=== PATIENT | female | born 1995 | race Caucasian/White ===

== ENCOUNTER 2020-04-29 00:07 | Emergency (ER) | payer MEDICAID ==
[~2020-04-29] VITALS: Ht 152.4 cm; Wt 86.2 kg
[2020-04-29 00:43] VITALS: BP 153/95
== END 2020-04-29 02:43 | disposition home or self-care (01) ==
LOC: ER 00:08
DX: S83.91XA Sprain of unspecified site of right knee, initial encounter (principal); X50.1XXA Overexertion from prolonged static or awkward postures, initial encounter; Y93.72 Activity, wrestling; Y92.89 Other specified places as the place of occurrence of the external cause; Y99.8 Other external cause status
CPT/HCPCS: 29505; 73560

== ENCOUNTER 2021-07-31 09:20 | Emergency (ER) | payer MEDICAID ==
[~2021-07-31] VITALS: Ht 152.4 cm; Wt 86.2 kg
[2021-07-31 09:21] VITALS: BP 134/75
[2021-07-31 10:07] LABS: Basophils # (auto) 0 10 ^3/uL (0-0.2); Basophils % (auto) 0.4 % (0.0-2.0); Eosinophils # (auto) 0.2 10 ^3/uL (0-0.8); Eosinophils % (auto) 1.8 % (0.0-7.0); Hematocrit 39.2 % (36.0-46.0); Hemoglobin 13.2 g/dL (12.2-16.2); Lymphocytes # (auto) 3.8 10 ^3/uL (0.4-5.4); Lymphocytes % (auto) 32.1 % (10.0-50.0); Mean Corpuscular Hemoglobin 30.2 pg (28.0-32.0); Mean Corpuscular Hgb Conc. 33.7 g/dL (32.0-36.0); Mean Corpuscular Volume 89.6 fL (80.0-100.0); Monocytes # (auto) 0.7 10 ^3/uL (0-1.3); Monocytes % (auto) 5.5 % (0.0-12.0); Neutrophils # (auto) 7.1 10 ^3/uL (1.6-8.6); Neutrophils % (auto) 60.2 % (37.0-80.0); Red Blood Cells 4.37 10^6/uL (4.0-5.20); Red Cell Distribution Width 13.5 % (11.8-14.3); White Blood Cell 11.8 10^3/uL (4.4-10.8)
[2021-07-31 10:11] LABS: Urine Bacteria FEW /hpf (None Seen); Urine Blood Negative /uL (Negative); Urine Mucus FEW (None Seen); Urine Specific Gravity 1.023 (1.001-1.035); Urine WBC 10 /hpf (0 - 5)
[2021-07-31 10:16] LABS: Potassium 3.5 mmol/L (3.5-5.1)
[2021-07-31 10:22] LABS: Albumin 3.7 g/dL (3.4-5.0); BUN/Creatinine Ratio 11.1; Bilirubin, Total 0.4 mg/dL (0.2-1.0); Total Protein 7.7 g/dL (6.4-8.2)
== END 2021-07-31 14:47 | disposition home or self-care (01) ==
LOC: ER 09:20
DX: Z34.91 Encounter for supervision of normal pregnancy, unspecified, first trimester (principal); Z3A.01 Less than 8 weeks gestation of pregnancy
CPT/HCPCS: 36415; 76801; 76817; 80053; 81001; 84702; 85025; 86850; 86900; 86901

== ENCOUNTER 2021-08-21 18:21 | Emergency (ER) | payer MEDICAID ==
[~2021-08-21] VITALS: Ht 152.4 cm; Wt 90.7 kg
[2021-08-21 18:35] VITALS: BP 119/86
[2021-08-21 19:38] LABS: Basophils # (auto) 0 10 ^3/uL (0-0.2); Basophils % (auto) 0.3 % (0.0-2.0); Eosinophils # (auto) 0 10 ^3/uL (0-0.8); Eosinophils % (auto) 0.1 % (0.0-7.0); Hematocrit 37.2 % (36.0-46.0); Lymphocytes # (auto) 1.8 10 ^3/uL (0.4-5.4); Lymphocytes % (auto) 10.2 % (10.0-50.0); Mean Corpuscular Hemoglobin 30.7 pg (28.0-32.0); Mean Corpuscular Hgb Conc. 34.9 g/dL (32.0-36.0); Mean Corpuscular Volume 87.8 fL (80.0-100.0); Monocytes # (auto) 0.5 10 ^3/uL (0-1.3); Neutrophils # (auto) 15.6 10 ^3/uL (1.6-8.6); Neutrophils % (auto) 86.4 % (37.0-80.0); Red Blood Cells 4.23 10^6/uL (4.0-5.20); Red Cell Distribution Width 13.6 % (11.8-14.3); White Blood Cell 18.1 10^3/uL (4.4-10.8)
[2021-08-21 19:52] LABS: BUN/Creatinine Ratio 13.6; Potassium 3.6 mmol/L (3.5-5.1)
[2021-08-21 23:06] LABS: Urine Bacteria FEW /hpf (None Seen); Urine Blood 2+ /uL (Negative); Urine Mucus FEW (None Seen); Urine Specific Gravity 1.028 (1.001-1.035); Urine WBC 3 /hpf (0 - 5)
== END 2021-08-22 00:10 | disposition home or self-care (01) ==
LOC: ER 18:22
DX: O20.0 Threatened abortion (principal); Z3A.09 9 weeks gestation of pregnancy
CPT/HCPCS: 36415; 76801; 80048; 81001; 84702; 85025

== ENCOUNTER 2023-09-07 00:28 | Emergency (ER) | payer MEDICAID ==
[2023-09-07 02:00] VITALS: BP 132/88; RESP 18; O2SAT 98
[2023-09-07 02:13] VITALS: PULSE 103
[2023-09-07 02:53] LABS: Alanine Aminotransferase 12 U/L (7-40); Albumin 3.8 g/dL (3.2-4.8); Alkaline Phosphatase 95 U/L (46-116); Anion Gap 6 (5-15); Aspartate Aminotransferase 17 U/L (13-40); Calcium 8.9 mg/dL (8.7-10.4); Carbon Dioxide 24 mmol/L (20-30); Chloride 107 mmol/L (98-107); Glucose 68 mg/dL (74-106); Magnesium 1.9 mg/dL (1.6-2.6); Potassium 3.8 mmol/L (3.5-5.1); Sodium 137 mmol/L (136-145)
[2023-09-07 02:54] LABS: Bilirubin, Total 0.2 mg/dL (0.2-1.0); Total Protein 6.5 g/dL (5.7-8.2)
[2023-09-07 02:58] LABS: BUN/Creatinine Ratio 10.2 (10.0-20.0); Blood Urea Nitrogen < 5 mg/dL (9-23)
[2023-09-07 03:00] LABS: Basophils # (auto) 0 10 ^3/uL (0-0.2); Basophils % (auto) 0.2 % (0.0-2.0); Eosinophils # (auto) 0.2 10 ^3/uL (0-0.8); Eosinophils % (auto) 1.5 % (0.0-7.0); Hematocrit 35.9 % (36.0-46.0); Lymphocytes # (auto) 2.5 10 ^3/uL (0.4-5.4); Lymphocytes % (auto) 18.9 % (10.0-50.0); Mean Corpuscular Hemoglobin 30.3 pg (28.0-32.0); Mean Corpuscular Hgb Conc. 33.4 g/dL (32.0-36.0); Mean Corpuscular Volume 90.6 fL (80.0-100.0); Monocytes % (auto) 7.3 % (0.0-12.0); Neutrophils # (auto) 9.4 10 ^3/uL (1.6-8.6); Neutrophils % (auto) 72.1 % (37.0-80.0); Red Blood Cells 3.97 10^6/uL (4.0-5.20); Red Cell Distribution Width 14.3 % (11.8-14.3)
[2023-09-07 03:02] LABS: Urine Bacteria FEW /hpf (None Seen); Urine Blood Negative /uL (Negative); Urine Clarity Clear (Clear); Urine Color Colorless (Yellow); Urine Protein, UAD Negative (Negative); Urine Specific Gravity 1.008 (1.001-1.035); Urine Urobilinogen Normal (Negative); Urine WBC 4 /hpf (0 - 5); Urine pH 5.5 (5.0-8.0)
== END 2023-09-07 04:36 | disposition left against medical advice (07) ==
LOC: ER 00:28
DX: O26.892 Other specified pregnancy related conditions, second trimester (principal); R10.2 Pelvic and perineal pain; M54.2 Cervicalgia; R42 Dizziness and giddiness; R51.9 Headache, unspecified; Z3A.23 23 weeks gestation of pregnancy; Z79.899 Other long term (current) drug therapy
CPT/HCPCS: 36415; 80053; 81001; 83735; 84702; 85025; 93005

== ENCOUNTER 2024-10-21 18:16 | Emergency (ER) | payer MEDICAID ==
[~2024-10-21] VITALS: Ht 157.5 cm; Wt 98.3 kg
[2024-10-21 18:53] LABS: Basophils # (auto) 0.1 10 ^3/uL (0-0.2); Basophils % (auto) 0.5 % (0.0-2.0); Eosinophils # (auto) 0.2 10 ^3/uL (0-0.8); Eosinophils % (auto) 1.7 % (0.0-7.0); Hematocrit 38.7 % (36.0-46.0); Lymphocytes # (auto) 1.7 10 ^3/uL (0.4-5.4); Lymphocytes % (auto) 16.8 % (10.0-50.0); Mean Corpuscular Hemoglobin 29.1 pg (28.0-32.0); Mean Corpuscular Hgb Conc. 33.7 g/dL (32.0-36.0); Mean Corpuscular Volume 86.3 fL (80.0-100.0); Monocytes # (auto) 0.5 10 ^3/uL (0-1.3); Monocytes % (auto) 5.1 % (0.0-12.0); Neutrophils # (auto) 7.5 10 ^3/uL (1.6-8.6); Neutrophils % (auto) 75.9 % (37.0-80.0); Platelet Count (auto) 232 10^3/uL (140-450); Red Blood Cells 4.48 10^6/uL (4.0-5.20); Red Cell Distribution Width 15.6 % (11.8-14.3); White Blood Cell 9.9 10^3/uL (4.4-10.8)
--- NOTE | 2024-10-21 19:05 | ED.PDOC ---
General HPI Comments A 29 year old female presents to the ED with a chief complaint of LT flank pain onset today. Patient states she began experiencing LT flank pain as well as painful urination with a burning sensation. Patient is currently , P:2 A:1 and is on Zofran for her nausea. Patient also states she was on antibiotics about 1 week ago for UTI. Denies any past medical history as well as shortness of breath, chest pain, diarrhea, constipation, fever, chills. No other symptoms or modifying factors present at this time. 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 Family History Family History: Family hx of HTN Family History (Other): High lipids Social History Smoker: Non-Smoker Alcohol: Denies ETOH Use Drugs: Denies Drug Use Lives In: Home Constitutional: denies: chills, diaphoresis, fatigue, fever, malaise, sweats, weakness, others EENTM: denies: blurred vision, double vision, ear bleeding, ear discharge, ear drainage, ear pain, ear ringing, eye pain, eye redness, hearing loss, mouth pain, mouth swelling, nasal discharge, nose bleeding, nose congestion, nose pain, photophobia, tearing, throat pain, throat swelling, voice changes, others Respiratory: denies: cough, hemoptysis, orthopnea, SOB at rest, shortness of breath, SOB with excertion, stridor, wheezing, others Cardiovascular: denies: chest pain, dizzy spells, diaphoresis, Dyspnea on exertion, edema, irregular heart beat, left arm pain, lightheadedness, palpitations, PND, syncope, others Gastrointestinal: denies: abdomen distended, abdominal pain, blood streaked bowels, constipated, diarrhea, dysphagia, difficulty swallowing, hematemesis, melena, nausea, poor appetite, poor fluid intake, rectal bleeding, rectal pain, vomiting, others Genitourinary: reports: burning, dysuria, flank pain (LT side), (11 weeks); denies: abnormal vagina bleeding, dyspareunia, frequency, hematuria, incontinence, pain, vagina discharge, urgency, others Neurological: denies: dizziness, fainting, headache, left sided numbness, left sided weakness, numbness, paresthesia, pre-existing deficit, right sided n umbness, right sided weakness, seizure, speech problems, tingling, tremors, weakness, others Musculoskeletal: denies: back pain, gout, joint pain, joint swelling, muscle pain, muscle stiffness, neck pain, others Integumetry: denies: bruises, change in color, change in hair/nails, dryness, laceration, lesions, lumps, rash, wounds, others Allergic/Immunocompromised: denies: Difficulty Healing, Frequent Infections, Hives, Itching, others Hematologic/Lymphatic: denies: anemia, blood clots, easy bleeding, easy bruising, swollen glands, others Endocrine: denies: excessive hunger, excessive sweating, excessive thirst, excessive urination, flushing, intolerance to cold, intolerance to heat, unexplained weight gain, unexplained weight loss, others Psychiatric: denies: anxiety, bipolar disorder, depression, hopeless, panic disorder, schizophrenia, sleepless, suicidal, others All Other Systems: Reviewed and Negative Physical Exam General Appearance: No Apparent Distress, Normal HEENT: Normal ENT Inspection, Pharynx Normal, TMs Normal Neck: Full Range of Motion, Non-Tender, Normal, Normal Inspection Respiratory: Chest Non-Tender, Lungs Clear, No Accessory Muscle Use, No Respiratory Distress, Normal Breath Sounds Cardiovascular: No Edema, No JVD, No Murmur, No Gallop, Normal Peripheral Pulses, Regular Rate/Rhythm Breast Exam: Deferred Gastrointestinal: No Organomegaly, Non Tender, No Pulsatile Mass, Normal Bowel Sounds, Soft Genitalia: Deferred Pelvic: Deferred Rectal: Deferred Extremities: No calf tenderness, Normal capillary refill, Normal inspection, Normal range of motion, Non-tender, No pedal edema Musculoskeletal : Apperance: Normal Neurologic: Alert, dry food products mixer II-XII nml as Tested, No Motor Deficits, Normal Affect, Normal Mood, No Sensory Deficits Cerebellar Function: Normal Reflexes: Normal Skin: Dry, Normal Color, Warm Lymphatic: No Adenopathy Was a procedure done? Was a procedure done?: No Differential Diagnosis Kidney stone (Female): N/A Kidney stone (Male): N/A Penile/Scrotal: N/A Urinary Problem (Male): N/A Urinary Problem (Female): Pyelonephritis, Urinary retention, UTI X-Ray, Labs, Meds, VS Vital Signs Date Time Temp Pulse Resp B/P (MAP) Pulse Ox O2 Delivery O2 Flow Rate FiO2 10/21/24 18:30 98.5 103 19 155/89 (111) 98 Lab Test 10/21/24 19:19 10/21/24 18:42 Range/Units Urine Color Yellow Yellow Urine Clarity Turbid H Clear Urine pH 6.5 5.0-9.0 Urine Specific [place] 1.027 1.001-1.035 Urine Protein Trace H Negative Urine Ketones Trace Negative Urine Blood 3+ H Negative /uL Urine Nitrite Negative Negative Urine Bilirubin Negative Negative Urine Urobilinogen Normal Negative mg/dL Urine Leukocyte Esterase 3+ Negative /uL Urine RBC 1 0 - 4 /hpf Urine WBC None seen 0 - 5 /hpf Urine Squamous Epithelial Cells None seen <5 /hpf Urine Bacteria None seen None Seen /hpf Urine Glucose Normal Normal mg/dL White Blood Count 9.9 4.4-10.8 10^3/uL Red Blood Count 4.48 4.0-5.20 10^6/uL Hemoglobin 13.0 12.2-16.2 g/dL Hematocrit 38.7 36.0-46.0 % Mean Corpuscular Volume 86.3 80.0-100.0 fL Mean Corpuscular Hemoglobin 29.1 28.0-32.0 pg Mean Corpuscular Hemoglobin Concent 33.7 32.0-36.0 g/dL Red Cell Distribution Width 15.6 H 11.8-14.3 % Platelet Count 232 140-450 10^3/uL Mean Platelet Volume 8.4 6.9-10.8 fL Neutrophils (%) (Auto) 75.9 37.0-80.0 % Lymphocytes (%) (Auto) 16.8 10.0-50.0 % Monocytes (%) (Auto) 5.1 0.0-12.0 % Eosinophils (%) (Auto) 1.7 0.0-7.0 % Basophils (%) (Auto) 0.5 0.0-2.0 % Neutrophils # (Auto) 7.5 1.6-8.6 10 ^3/uL Lymphocytes # (Auto) 1.7 0.4-5.4 10 ^3/uL Monocytes # (Auto) 0.5 0-1.3 10 ^3/uL Eosinophils # (Auto) 0.2 0-0.8 10 ^3/uL Basophils # (Auto) 0.1 0-0.2 10 ^3/uL Nucleated Red Blood Cells 0.0 % Sodium Level 139 136-145 mmol/L Potassium Level 3.4 L 3.5-5.1 mmol/L Chloride Level 106 98-107 mmol/L Carbon Dioxide Level 24 20-31 mmol/L Anion Gap 9 5-15 Blood Urea Nitrogen 6 L 9-23 mg/dL Creatinine 0.52 L 0.550-1.02 mg/dL Glomerular Filtration Rate Calc 130 >90 mL/min BUN/Creatinine Ratio 11.5 10.0-20.0 Serum Glucose 88 74-106 mg/dL Calcium Level 9.3 8.7-10.4 mg/dL [place] [id number] Ph: [phone] DIAGNOSTIC IMAGING Diagnostic Imaging Report : [id number] Signed PATIENT: BONITA NASCIMENTO ACCT: [id number] UNIT: [id number] : 1995 LOC: ER ROOM / BED: / AGE / SEX: 29 / F ADM STATUS: REG ER SERVICE 46 ORDERING PHYSICIAN: PATY ROJAS MD PROCEDURE(s): OB4US - OB ULTRASOUND COMP LESS 14WKS REASON: abdominal pain, hematuria ORDER NUMBER(s): [id number], ACCESSION NUMBER(s): [id number] OB ULTRASOUND <14 WEEKS: HISTORY: abdominal pain, hematuria TECHNIQUE: Multiple real-time grayscale sonographic images of the pelvis with duplex Doppler color flow, spectral and M-mode analysis. TRANSDUCERS: Transabdominal FINDINGS: The uterus measures 14.1 x 8.6 x 6. Right ovary not visualized Left ovary not visualized IUP single live fetus at 13 weeks 0 day average ultrasound age based on mean crown-rump length of 6.7 cm and gestational sac size of 6.72 cm heart rate detected at 148 beats per minute. Yolk sac not visualized. Amniotic fluid adequate Radha-gestational space: Appears normal IMPRESSION: 1. IUP single live fetus 13 weeks 0 days AUA corresponding to an DIEGO of 04/28/2025 2. FHR: 148 bpm. No acute abnormality detected. ATED BY: LEIGH JOINER Jr., DO DICTATED DATE/TIME: 10/21/242025 SIGNED BY: LEIGH JOINER Jr., SIGNED DATE/TIME: 10/21/242025 CC: Time of 1ST Reevaluation: 18:59 Reevaluation 1ST: Unchanged Patient Education/Counseling: Diagnosis, Treatment, Prognosis Family Education/Counseling: Diagnosis, Treatment, Prognosis Additional Information I reviewed the following notes from patient's past medical encounters: The following tests were ordered, and results were reviewed by me: UA, CBC, CMP, US OB ULTRASOUND I reviewed and agreed with the following test results read by other providers: US OB ULTRASOUND I discussed treatment and results with medical personnel and: patient Departure 1 Departure Time of Disposition: 20:54 (Patient has a uti, otherwise looks good. Will discharge with antibiotics. ) Impression: Primary Impression: Acute cystitis Qualified Codes: N30.01 - Acute cystitis with hematuria Additional Impression: Qualified Codes: Z3A.13 - 13 weeks gestation of Disposition: HOME / SELF CARE / HOMELESS Condition: Stable e-Prescriptions Cefpodoxime Proxetil (Cefpodoxime Proxetil) 200 Mg Tab 200 MG PO BID for 10 Days, #20 TAB Prov: PATY ROJAS MD 10/21/24 Discharged With: Self Critical Care Note Critical Care Time?: No Stability Stability form required: No I personally scribed for PATY ROJAS MD ([email or web address]) on 10/21/24 at 19:05. Electronically submitted by Elma Collier ([email or web address]). I personally scribed for PATY ROJAS MD ([email or web address]) on 10/21/24 at 19:11. Electronically submitted by Elma Collier ([email or web address]). I personally scribed for PATY ROJAS MD ([email or web address]) on 10/21/24 at 19:44. Electronically submitted by Elma Collier ([email or web address]). I personally scribed for PATY ROJAS MD ([email or web address]) on 10/21/24 at 20:31. Electronically submitted by Elma Collier ([email or web address]). I personally scribed for PATY ROJAS MD ([email or web address]) on 10/21/24 at 20:32. Electronically submitted by Elma Collier ([email or web address]). PATY ROJAS MD Oct 21, 2024 19:05
[2024-10-21 19:09] LABS: Chloride 106 mmol/L (98-107); Sodium 139 mmol/L (136-145)
[2024-10-21 19:10] LABS: Anion Gap 9 (5-15); Calcium 9.3 mg/dL (8.7-10.4); Carbon Dioxide 24 mmol/L (20-31)
[2024-10-21 19:15] LABS: BUN/Creatinine Ratio 11.5 (10.0-20.0); Glucose 88 mg/dL (74-106)
[2024-10-21 19:17] LABS: Blood Urea Nitrogen 6 mg/dL (9-23); Potassium 3.4 mmol/L (3.5-5.1)
[2024-10-21 19:20] LABS: Urine Bacteria None Seen /hpf (None Seen); Urine WBC None Seen /hpf (0 - 5)
[2024-10-21 19:28] LABS: Urine Blood 3+ /uL (Negative); Urine Clarity Turbid (Clear); Urine Color Yellow (Yellow); Urine Protein, UAD TRACE (Negative); Urine Specific Gravity 1.027 (1.001-1.035); Urine Urobilinogen Normal (Negative); Urine pH 6.5 (5.0-9.0)
--- NOTE | 2024-10-21 20:28 | DVH ---
OB ULTRASOUND <14 WEEKS: HISTORY: abdominal pain, hematuria TECHNIQUE: Multiple real-time grayscale sonographic images of the pelvis with duplex Doppler color f low, spectral and M-mode analysis. TRANSDUCERS: Transabdominal FINDINGS: The uterus measures 14.1 x 8.6 x 6. Right ovary not visualized Left ovary not visualized IUP single live fetus at 13 weeks 0 day average ultrasound age based on mean crown-rump length of 6.7 cm and gestational sac size of 6.72 cm heart rate detected at 148 beats per minute. Yolk sac not visualized. Amniotic fluid adequate Radha-gestational space: Appears normal IMPRESSION: 1. IUP single live fetus 13 weeks 0 days AUA corresponding to an DIEGO of 04/28/2025 2. FHR: 148 bpm. No acute abnormality detected.
[2024-10-21] MEDS ORDERED: CEFP200T15 PO (21:00)
[2024-10-21 21:23] VITALS: BP 127/78; PULSE 87; RESP 18; O2SAT 100
[2024-10-21] MEDS: CEPHALEXIN 250 MG CAP PO ONE (21:30)
== END 2024-10-21 21:37 | disposition home or self-care (01) ==
LOC: ER 18:16
DX: O23.11 Infections of bladder in pregnancy, first trimester (principal); Z3A.13 13 weeks gestation of pregnancy; Z90.49 Acquired absence of other specified parts of digestive tract
CPT/HCPCS: 36415; 76801; 80048; 81001; 85025